=== PATIENT | female | born 1950 | race Caucasian/White ===

== ENCOUNTER 2020-11-12 17:48 | Emergency (ER) | payer OTHER ==
[~2020-11-12] VITALS: Ht 160 cm; Wt 109.1 kg
--- NOTE | 2020-11-12 18:22 | EKG ---
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
--- NOTE | 2020-11-12 19:13 | PHYS DOC ---
Past History Past Medical History: Hypertension Past Surgical History: Knee Replacement, Tubal ligation Alcohol Use: None General Adult EDM: Chief Complaint: HYPERTENSION HPI: HPI: Patient is a 70-year-old female coming in for high blood pressure reading at home with a wrist cuff. Patient states she checked her blood pressure and her systolic was 140. Patient states she has had a "twinging" pain around her left breast since yesterday. Has had a slight headache. Denies any vision change, diaphoresis, nausea or vomiting, but did have some stomach upset that she attributes to not eating much today. Denies any chest pressure or shortness of breath. Has a history of hypertension has been on verapamil without any changes to her dosage. Denies any other medical conditions. Denies any recent stressors. Denies any cardiac history. Patient states her wrist blood pressure cuff is "very old" and she usually checks it on her right side. Denies any prior knowledge of having a high blood pressure on the left. Review of Systems: Review of Systems: All other systems within normal limits except for as noted in the HPI Physical Exam: PE: Constitutional: Well developed, well nourished, no acute distress, non-toxic appearance. [] HENT: Normocephalic, atraumatic, bilateral external ears normal, nose normal. [] Eyes: PERRLA, conjunctiva normal, no discharge. [] Neck: No rigidity, supple, no stridor. [] Cardiovascular: Regular rate and rhythm, brisk cap refill, bilateral radial pulses symmetric. [] Lungs & Thorax: Non labored symmetric respirations, no tachypnea or respiratory distress [] Abdomen: Soft, nondistended. Skin: Warm, dry, no erythema, no rash. [] Back: Unremarkable Extremities: No deformities, range of motion grossly intact, no lower extremity edema [] Neurologic: Alert and oriented X 3, no focal deficits noted. [] Psychologic: Affect normal, judgement normal, mood normal. [] Current Patient Data: Vital Signs: Vital Signs Date Time Temp Pulse Resp B/P (MAP) Pulse Ox O2 Delivery O2 Flow Rate FiO2 11/12/20 18:17 85 20 165/83 (110) 95 11/12/20 17:54 98.4 11/12/20 17:54 Room Air EKG: EKG: Normal sinus rhythm, heart rate 87 bpm,, no ST elevation or depression, no ectopy, normal intervals. Unremarkable EKG. [] Radiology/Procedures: Radiology/Procedures: Two-view chest dated 11/12/2020. Comparison made to CT dated 02/22/2012. Clinical data indication: Left-sided chest pain. FINDINGS: PA and lateral views obtained. Heart size within normal limits. There is a right-sided aortic arch, unchanged. Lungs are clear. No consolidation or pleural effusion. No pneumothorax. IMPRESSION: No acute radiographic abnormality. [] Heart Score: C/O Chest Pain: Yes HEART Score for Chest Pain: HEART Score for Chest Pain Response (Comments) Value History Slighlty/Non-Suspicious 0 ECG Normal 0 Age > 65 2 Risk Factors 1 or 2 Risk Factors 1 Total 3 Risk Factors: Risk Factors: DM, Current or recent (<one month) smoker, HTN, HLP, family history of CAD, obesity. Risk Scores: Score 0 - 3: 2.5% MACE over next 6 weeks - Discharge Home Score 4 - 6: 20.3% MACE over next 6 weeks - Admit for Clinical Observation Score 7 - 10: 72.7% MACE over next 6 weeks - Early Invasive Strategies Course & Med Decision Making: Course & Med Decision Making Pertinent Labs and Imaging studies reviewed. (See chart for details) Dissection unlikely due to normal age-adjusted D-dimer and patient's complaints of pain being mostly felt in her left breast, denies any deeper chest pain. Neurovascularly intact distal upper extremities with strong symmetric pulses. [] Dragon Disclaimer: Dragon Disclaimer: This electronic medical record was generated, in whole or in part, using a voice recognition dictation system. Departure Departure: Impression: Primary Impression: Hypertension Disposition: 01 DC HOME SELF CARE/HOMELESS Condition: STABLE Referrals: ROSALIE FLOYD MD (PCP) Patient Instructions: Managing Your High Blood Pressure NAOMI MONTGOMERY MD Nov 12, 2020 19:13
[2020-11-12 19:20] LABS: BASO % 1 % (0-3); EOS # 0.1 x10^3/uL (0.0-0.7); EOS % 2 % (0-3); HEMOGLOBIN 13.6 g/dL (12.0-15.5); LYMPH # 1.2 x10^3/uL (1.0-4.8); LYMPH % 19 % (24-48); MEAN CORPUSCULAR HEMOGLOBIN 28 pg (25-35); MEAN CORPUSCULAR HGB CONC 32 g/dL (31-37); MEAN CORPUSCULAR VOLUME 85 fL (79-100); MONO # 0.5 x10^3/uL (0.0-1.1); MONO % 8 % (0-9); NEUT # 4.2 x10^3uL (1.8-7.7); NEUT % 71 % (31-73); PLATELET COUNT 285 x10^3/uL (140-400); RED BLOOD COUNT 4.93 x10^6/uL (3.50-5.40); RED CELL DISTRIBUTION WIDTH 14.6 % (11.5-14.5)
[2020-11-12 19:25] LABS: CALCIUM 9.5 mg/dL (8.5-10.1); GFR 54.5; POTASSIUM 4.7 mmol/L (3.5-5.1)
[2020-11-12 19:37] LABS: ALBUMIN 3.5 g/dL (3.4-5.0); ALBUMIN/GLOBULIN RATIO 0.9 (1.0-1.7); MAGNESIUM 2.1 mg/dL (1.8-2.4); TOTAL BILIRUBIN 0.3 mg/dL (0.2-1.0); TOTAL PROTEIN 7.5 g/dL (6.4-8.2)
[2020-11-12 19:57] LABS: BILIRUBIN,URINE NEG (NEG); CLARITY,URINE CLEAR; COLOR,URINE YELLOW; GLUCOSE,URINE NEG (NEG)
[2020-11-12 19:58] LABS: BACTERIA,URINE 0 /HPF (0-FEW); NITRITE,URINE NEG (NEG); RBC,URINE 0 /HPF (0-2); SQUAMOUS EPITHELIAL CELL,UR OCC /LPF; UROBILINOGEN,URINE 0.2 mg/dL (0.2 mg/dL); WBC,URINE 0 /HPF (0-4)
--- NOTE | 2020-11-12 20:13 | RAD ---
Two-view chest dated 11/12/2020. Comparison made to CT dated 02/22/2012. Clinical data indication: Left-sided chest pain. FINDINGS: PA and lateral views obtained. Heart size within normal limits. There is a right-sided aortic arch, u nchanged. Lungs are clear. No consolidation or pleural effusion. No pneumothorax. IMPRESSION: No acute radiographic abnormality. Electronically signed by: Andrea Garcia MD (11/12/2020 8:11 PM) AYDEN
[2020-11-12 20:17] VITALS: BP 136/76
== END 2020-11-12 20:30 | disposition home or self-care (01) ==
LOC: ER 17:48
DX: I10 Essential (primary) hypertension (principal); R51.9 Headache, unspecified; K30 Functional dyspepsia
CPT/HCPCS: 36415; 71046; 80053; 81001; 83735; 83880; 84484; 85025; 85379; 85610; 93005; 99285-25